=== PATIENT | male | born 1955 | race African-American/Black ===

== ENCOUNTER 2017-06-19 10:26 | Outpatient (CLI) | payer MEDICARE ==
[2017-06-19 11:11] LABS: INR 1.4 (0.8-1.2); PT - PROTHROMBIN TIME 15.8 secs (9.9-12.6)
== END 2017-06-19 10:27 | disposition home or self-care (01) ==
LOC: LAB 10:26
PROVIDERS: ATTEND Internal Medicine Cardiovascular Disease
DX: I48.91 Unspecified atrial fibrillation (principal)
CPT/HCPCS: 36415; 85610

== ENCOUNTER 2017-06-27 09:32 | Outpatient (CLI) | payer MEDICARE ==
[2017-06-27 10:09] LABS: INR 2.2 (0.8-1.2); PT - PROTHROMBIN TIME 25.4 secs (9.9-12.6)
== END 2017-06-27 09:33 | disposition home or self-care (01) ==
LOC: LAB 09:32
PROVIDERS: ATTEND Internal Medicine Cardiovascular Disease
DX: I48.91 Unspecified atrial fibrillation (principal)
CPT/HCPCS: 36415; 85610

== ENCOUNTER 2017-07-23 09:32 | Outpatient (CLI) | payer MEDICARE ==
[2017-07-23 09:57] LABS: INR 1.9 (0.8-1.2); PT - PROTHROMBIN TIME 20.5 secs (9.9-12.6)
== END 2017-07-23 09:33 | disposition home or self-care (01) ==
LOC: LAB 09:32
PROVIDERS: ATTEND Internal Medicine Cardiovascular Disease
DX: I48.91 Unspecified atrial fibrillation (principal)
CPT/HCPCS: 36415; 85610

== ENCOUNTER 2017-08-06 09:25 | Outpatient (CLI) | payer MEDICARE ==
[2017-08-06 09:45] LABS: INR 2.1 (0.8-1.2); PT - PROTHROMBIN TIME 23.3 secs (9.9-12.6)
== END 2017-08-06 09:26 | disposition home or self-care (01) ==
LOC: LAB 09:25
PROVIDERS: ATTEND Internal Medicine Cardiovascular Disease
DX: I48.91 Unspecified atrial fibrillation (principal)
CPT/HCPCS: 36415; 85610

== ENCOUNTER 2019-02-09 14:38 | Outpatient (CLI) | payer MEDICARE, OTHER ==
[2019-02-09 15:18] LABS: INR 3.1 (0.8-1.2); PT - PROTHROMBIN TIME 34.8 secs (9.9-12.6)
== END 2019-02-09 14:39 | disposition home or self-care (01) ==
LOC: LAB 14:38
DX: I48.91 Unspecified atrial fibrillation (principal)
CPT/HCPCS: 36415; 85610

== ENCOUNTER 2019-03-09 09:25 | Outpatient (CLI) | payer MEDICARE, OTHER ==
[2019-03-09 10:28] LABS: INR 2.5 (0.8-1.2)
== END 2019-03-09 09:26 | disposition home or self-care (01) ==
LOC: LAB 09:25
PROVIDERS: ATTEND Surgery
DX: I48.91 Unspecified atrial fibrillation (principal)
CPT/HCPCS: 36415; 85610

== ENCOUNTER 2019-04-13 | Outpatient (CLI) | payer MEDICARE, OTHER | END 2019-04-13 08:29 | disposition home or self-care (01) | DX: I48.91 Unspecified atrial fibrillation (principal) ==

== ENCOUNTER 2019-05-04 12:30 | Outpatient (CLI) | payer MEDICARE, OTHER ==
[2019-05-04 12:55] LABS: INR 2.4 (0.8-1.2); PT - PROTHROMBIN TIME 26.8 secs (9.9-12.6)
== END 2019-05-04 12:31 | disposition home or self-care (01) ==
LOC: LAB 12:30
PROVIDERS: ATTEND Surgery
DX: I48.91 Unspecified atrial fibrillation (principal)
CPT/HCPCS: 36415; 85610

== ENCOUNTER 2019-06-11 09:18 | Outpatient (CLI) | payer MEDICARE, OTHER ==
[2019-06-11 09:50] LABS: INR 1.7 (0.8-1.2); PT - PROTHROMBIN TIME 19.2 secs (9.9-12.6)
== END 2019-06-11 09:19 | disposition home or self-care (01) ==
LOC: LAB 09:18
PROVIDERS: ATTEND Surgery
DX: I48.91 Unspecified atrial fibrillation (principal)
CPT/HCPCS: 36415; 85610

== ENCOUNTER 2019-07-14 09:15 | Outpatient (CLI) | payer MEDICARE, OTHER ==
[2019-07-14 10:10] LABS: INR 2.6 (0.8-1.2)
== END 2019-07-14 09:16 | disposition home or self-care (01) ==
LOC: LAB 09:15
PROVIDERS: ATTEND Surgery
DX: I48.91 Unspecified atrial fibrillation (principal)
CPT/HCPCS: 36415; 85610

== ENCOUNTER 2019-08-11 09:12 | Outpatient (CLI) | payer MEDICARE, OTHER | END 2019-08-11 09:13 | disposition home or self-care (01) | LOC: LAB 09:12 | PROVIDERS: ATTEND Surgery | DX: I48.91 Unspecified atrial fibrillation (principal) | CPT/HCPCS: 85610 ==

== ENCOUNTER 2019-09-14 08:43 | Outpatient (CLI) | payer MEDICARE, OTHER | END 2019-09-14 08:44 | disposition home or self-care (01) | LOC: LAB 08:43 | PROVIDERS: ATTEND Surgery | DX: I48.91 Unspecified atrial fibrillation (principal) | CPT/HCPCS: 85610 ==